=== PATIENT | male | born 1980 | race Caucasian/White ===

== ENCOUNTER 2018-07-04 04:45 | Emergency (ER) | payer MEDICAID, OTHER ==
[2018-07-04] MEDS ORDERED: ONDANSETRON 4 MG/2 ML VIAL ONE (04:58)
[2018-07-04] MEDS ORDERED: fentaNYL 100 MCG/2 ML INJ ONE (04:59)
[2018-07-04] MEDS ORDERED: ONDANSETRON 4 MG/2 ML VIAL IVP ONE (05:01)
[2018-07-04] MEDS ORDERED: NS 1,000 ML IV ONE ×2 (05:01)
[2018-07-04] MEDS ORDERED: KETOROLAC 15 MG/1 ML SDV IVP ONE (05:01)
[2018-07-04] MEDS ORDERED: fentaNYL 100 MCG/2 ML INJ IVP ONE (05:01)
--- NOTE | 2018-07-04 05:02 | EDPHY ---
H & P Stated Complaint: ABD, DIARRHEA X2 DAYS, ALSO HAD-NOW BETTER Time Seen by Provider: 07/04/18 04:53 HPI/ROS: Chief Complaint: Abdominal pain, nausea, vomiting, diarrhea HPI: 38-year-old male began having nausea vomiting and diarrhea 2 nights ago. Has had waxing waning abdominal cramping. His also has similar symptoms but she has improved. States that he was vomiting all day yesterday with multiple episodes of diarrhea. No blood in his emesis. No dark tarry stools or blood in his stool. No fevers or chills. Is having crampy diffuse abdominal pain. No history of similar episodes in the past. Has a history of asthma, no other medical problems. Drinks occasional alcohol, no smoking. No cannabis use. No surgeries. ROS: 10 systems were reviewed and were negative except those elements noted in the HPI. PMH: Asthma Social History: No smoking, occasional alcohol, no recreational drug use Family History: non-contributory Physical Exam: Gen: Awake, Alert, uncomfortable appearing HEENT: Nose: no rhinorrhea Eyes: PERRLA, EOMI Mouth: Moist mucosa Neck: Supple, no JVD Chest: nontender, lungs clear to auscultation Heart: S1, S2 normal, no murmur Abd: Soft, moderate diffuse tenderness, no guarding Back: no CVA tenderness, no midline tenderness Ext: no edema, non-tender Skin: no rash Neuro: CN II-XII intact, Sensation grossly intact, Strength 5/5 in bilateral upper and lower extremities - Personal History Current Tetanus/Diphtheria Vaccine: Unsure - Medical/Surgical History Hx Asthma: Yes Hx Chronic Respiratory Disease: No Hx Diabetes: No Hx Cardiac Disease: No Hx Renal Disease: No Hx Cirrhosis: No Hx Alcoholism: No Hx HIV/AIDS: No Hx Splenectomy or Spleen Trauma: No Other PMH: ASTHMA, DOUBLE HERNIA AT 1YO - Social History Smoking Status: Never smoked Constitutional: Initial Vital Signs Temperature (C) 36.7 C 07/04/18 04:48 Heart Rate 100 07/04/18 04:48 Respiratory Rate 26 H 07/04/18 04:48 O2 Sat (%) 99 07/04/18 04:48 O2 Delivery Mode Room Air Allergies/Adverse Reactions: No Known Allergies Allergy (Unverified 07/04/18 04:48) Home Medications: Medication Instructions Recorded Advair 100/50 (*) 07/04/18 Albuterol 07/04/18 Antibiotics 07/04/18 Ondansetron Odt [Zofran Odt 4 mg 4 mg PO Q4 PRN #10 tab 07/04/18 (*)] Medical Decision Making ED Course/Re-evaluation: Patient is feeling significantly improved after fentanyl Toradol and ondansetron. Continue to receive IV fluids. He is asking for ice chips. Repeat examination reveals a soft benign abdomen, no focal tenderness. Patient is feeling significantly improved. He is tolerating p.o.. No pain. Soft benign abdomen. Will discharge with follow-up with primary care physician. - Data Points Laboratory Results: Laboratory Results 07/04/18 05:25 07/04/18 06:01 07/04/18 07/04/18 07/04/18 06:01 05:25 05:25 WBC 8.62 10^3/uL 10^3/uL (3.80-9.50) RBC 6.53 10^6/uL H 10^6/uL (4.40-6.38) Hgb 18.4 g/dL H g/dL (13.7-17.5) Hct 53.0 % H % (40.0-51.0) MCV 81.2 fL L fL (81.5-99.8) MCH 28.2 pg pg (27.9-34.1) MCHC 34.7 g/dL g/dL (32.4-36.7) RDW 13.2 % % (11.5-15.2) Plt Count 232 10^3/uL 10^3/uL (150-400) MPV 9.4 fL fL (8.7-11.7) Neut % (Auto) 81.8 % H % (39.3-74.2) Lymph % (Auto) 8.7 % L % (15.0-45.0) [place] % (Auto) 7.9 % % (4.5-13.0) Eos % (Auto) 1.0 % % (0.6-7.6) Baso % (Auto) 0.3 % % (0.3-1.7) Nucleat RBC Rel Count 0.0 % % (0.0-0.2) Absolute Neuts (auto) 7.04 10^3/uL H 10^3/uL (1.70-6.50) Absolute Lymphs (auto) 0.75 10^3/uL L 10^3/uL (1.00-3.00) Absolute Monos (auto) 0.68 10^3/uL 10^3/uL (0.30-0.80) Absolute Eos (auto) 0.09 10^3/uL 10^3/uL (0.03-0.40) Absolute Basos (auto) 0.03 10^3/uL 10^3/uL (0.02-0.10) Absolute Nucleated RBC 0.00 10^3/uL 10^3/uL (0-0.01) Immature Gran % 0.3 % % (0.0-1.1) Immature Gran # 0.03 10^3/uL 10^3/uL (0.00-0.10) Sodium 140 mEq/L mEq/L TNP (135-145) Potassium 3.7 mEq/L mEq/L TNP (3.5-5.2) Chloride 108 mEq/L mEq/L TNP (97-110) Carbon Dioxide 20 mEq/l L mEq/l TNP (22-31) Anion Gap 12 mEq/L mEq/L TNP (6-14) BUN 23 mg/dL mg/dL TNP (7-23) Creatinine 0.9 mg/dL mg/dL TNP (0.7-1.3) Estimated GFR > 60 TNP Glucose 104 mg/dL H mg/dL TNP (70-100) Calcium 8.8 mg/dL mg/dL TNP (8.5-10.4) Total Bilirubin 1.2 mg/dL mg/dL TNP (0.1-1.4) AST 26 IU/L IU/L TNP (17-59) ALT 42 IU/L IU/L TNP (21-72) Alkaline Phosphatase 68 IU/L IU/L TNP (38-126) Total Protein 6.7 g/dL g/dL TNP (6.3-8.2) Albumin 4.3 g/dL g/dL TNP (3.5-5.0) Medications Given: Discontinued Medications Fentanyl (Sublimaze) 50 mcg IVP EDNOW ONE Stop: 07/04/18 05:02 Last Admin: 12/12/18 05:12 Dose: 50 mcg Sodium Chloride (Ns) 1,000 mls @ 0 mls/hr IV ONCE ONE; Wide Open PRN Reason: Protocol Stop: 07/04/18 05:02 Last Admin: 07/04/18 05:11 Dose: 1,000 mls Sodium Chloride (Ns) 1,000 mls @ 0 mls/hr IV ONCE ONE; Wide Open PRN Reason: Protocol Stop: 07/04/18 05:02 Last Admin: 07/04/18 05:11 Dose: 1,000 mls Ketorolac Tromethamine (Toradol) 15 mg IVP EDNOW ONE Stop: 07/04/18 05:02 Last Admin: 07/04/18 05:11 Dose: 15 mg Ondansetron HCl (Zofran) 4 mg IVP EDNOW ONE Stop: 07/04/18 05:02 Last Admin: 07/04/18 05:12 Dose: 4 mg Departure - Departure Disposition: Home, Routine, Self-Care Clinical Impression: Acute gastroenteritis Condition: Good Instructions: Dehydration (ED), Gastroenteritis (ED) Additional Instructions: You may take ondansetron as needed for nausea and vomiting. Make sure to drink plenty of fluids, Pedialyte is the best fluid for rehydrating. Alternate acetaminophen (1000 mg) with ibuprofen (400 mg) every 4 hours as needed for fevers, chills, aches or pain. Follow up with primary care physician in 3-4 days if symptoms are not improving. He Referrals: Sulma Lyle MD [Primary Care Provider] - As per Instructions Prescriptions: Ondansetron Odt [Zofran Odt 4 mg (*)] 4 mg PO Q4 PRN #10 tab PRN Reason: nausea
[2018-07-04 05:37] LABS: PLATELET COUNT 232 10^3/uL (150-400)
[2018-07-04 06:53] VITALS: BP 137/79
== END 2018-07-04 06:53 | disposition home or self-care (01) ==
DX: K52.9 Noninfective gastroenteritis and colitis, unspecified (principal); E86.9 Volume depletion, unspecified; J45.909 Unspecified asthma, uncomplicated
CPT/HCPCS: 96374; J1885; J2405; J3010